=== PATIENT | female | born 1945 | race Caucasian/White ===

== ENCOUNTER 2023-07-09 06:22 | Day surgery (SDC) | payer MEDICARE, BC ==
[2023-07-07 09:57] VITALS: BMI 25.8
[2023-07-09] MEDS ORDERED: Bupivacaine PF 0.5% 30 ML VIAL ONE (06:57)
[2023-07-09] MEDS ORDERED: CEFAZOLIN 2 GM VIAL ONE (06:57)
[2023-07-09] MEDS ORDERED: Acetaminophen 500 MG TAB ONE (08:03)
[2023-07-09] MEDS ORDERED: PROPOFOL 20 ML ONE (08:30)
[2023-07-09] MEDS ORDERED: fentaNYL 50 mcg/mL 1 mL Vial ONE (08:30)
[2023-07-09] MEDS ORDERED: Dexamethasone 4 mg/ml Vial ONE (08:31)
[2023-07-09] MEDS ORDERED: Vasopressin 20 UNITS/ML VIAL ONE (08:31)
[2023-07-09] MEDS ORDERED: Ondansetron PF 4 MG/2 ML Vial ONE (08:31)
[2023-07-09] MEDS ORDERED: Oxytocin 10 UNITS/ML VIAL ONE (08:31)
[2023-07-09] MEDS ORDERED: Lidocaine 1% PF 5 ML VIAL ONE (08:31)
[2023-07-09] MEDS ORDERED: Sodium Chloride 0.9% 10 ML ONE (08:32)
[2023-07-09] MEDS ORDERED: Albuterol HFA (OR) 200 PUFF INH ONE (08:32)
[2023-07-09] MEDS ORDERED: Atropine Sulfate 0.4 mg/1 ml Vial ONE (08:32)
[2023-07-09] MEDS ORDERED: ePHEDrine Sulfate 50 MG/10 ML VIAL ONE (09:41)
[2023-07-09] MEDS ORDERED: Ketorolac Tromethamine 30 MG/ML VIAL ONE (11:09)
[2023-07-09] MEDS ORDERED: traMADol HCl 50 MG TAB ONE (11:44)
== END 2023-07-09 12:25 | disposition home or self-care (01) ==
LOC: CSHSDC 06:22
PROVIDERS: ATTEND Podiatrist Foot & Ankle Surgery
PROC: 0SRP0JZ Replacement of Right Toe Phalangeal Joint with Synthetic Substitute, Open Approach (ICD-10-PCS; principal; 2023-07-09)
PROC: 0QBN0ZZ Excision of Right Metatarsal, Open Approach (ICD-10-PCS; 2023-07-09)
DX: M20.41 Other hammer toe(s) (acquired), right foot (principal); M77.41 Metatarsalgia, right foot; I10 Essential (primary) hypertension; I48.0 Paroxysmal atrial fibrillation; K21.9 Gastro-esophageal reflux disease without esophagitis; Z79.01 Long term (current) use of anticoagulants; Z79.899 Other long term (current) drug therapy; Z88.6 Allergy status to analgesic agent
CPT/HCPCS: C1713; J0461; J1100; J1885; J2405; J2590; J2704; J3010; S0020